=== PATIENT | male | born 1930 | race Caucasian/White ===

== ENCOUNTER 2017-02-22 15:06 | Inpatient (IN) | payer MEDICARE, BC ==
[~2017-02-22] VITALS: Ht 167.6 cm; Wt 72.1 kg
[~2017-02-22 15:06] MED LIST: MELA1TAB25 PO; MEMA28CA PO; MULT1TAB73 PO; RISP0.5T20 PO; SERT100T PO
--- NOTE | 2017-02-22 15:15 | NUR ---
BIB RA S/P GLF AT [facility]. HAS LAC ABOVE RIGHT EYE. A/OX 3, BREATHING EVEN AND UNLABORED. NO SOB. VITALS STABLE. SAFETY AND COMFORT MEASURES IN PLACE. AWAITING MD ORDERS.
--- NOTE | 2017-02-22 15:28 | NUR ---
WOUND CARE PROVIDED TO RIGHT EYE LAC. NEW IV STARTED ON LFA, 18 G. BLOOD DRAWN AND SENT TO LAB.
[2017-02-22 15:33] LABS: BASOPHILS % (AUTO) 0.1 % (0.0-2.0); EOSINOPHILS # (AUTO) 0.1 /CMM (0.0-0.7); EOSINOPHILS % (AUTO) 0.5 % (0.0-6.0); HEMATOCRIT 40 % (39-51); HEMOGLOBIN 13.2 g/dL (13.5-17.5); LYMPHOCYTES # (AUTO) 1.6 /CMM (0.8-4.8); LYMPHOCYTES % (AUTO) 14.5 % (20.0-44.0); MEAN CORPUSCULAR HEMOGLOBIN 30 PG (26.0-33.0); MEAN CORPUSCULAR HGB CONC 33 g/dl (31.0-36.0); MEAN CORPUSCULAR VOLUME 90 fL (80-96); MONOCYTES % (AUTO) 8.8 % (2.0-12.0); NEUTROPHILS # (AUTO) 8.3 /CMM (1.8-8.9); NEUTROPHILS % (AUTO) 76.1 % (43.0-81.0); PLATELET COUNT (AUTO) 273 /CMM (150-450); RED BLOOD CELL COUNT(AUTO) 4.47 MIL/uL (4.5-6.0); WHITE BLOOD COUNT (AUTO) 10.9 K/uL (4.3-11.0)
--- NOTE | 2017-02-22 15:38 | NUR ---
PATIENT TAKEN TO CT VIA STRETCHER.
[2017-02-22 15:48] LABS: CALCIUM, SERUM 8.8 mg/dL (8.5-10.1); CARBON DIOXIDE 28 mmol/L (21-32); CHLORIDE 103 mmol/L (98-107); CREATININE 1.2 mg/dL (0.6-1.3); GLUCOSE 123 mg/dL (74-106); INR 0.97 (0.87-1.13); POTASSIUM 4.2 mmol/L (3.5-5.1); PROTHROMBIN TIME 10.1 SECS (9.5-12.7); SODIUM SERUM 139 mmol/L (136-145); UREA NITROGEN, BLOOD 26 mg/dL (7-18)
[2017-02-22] MEDS ORDERED: LIDOCAINE 1%-EPI 1:100,000 50 ML VIAL IJ ONE ×2 (15:49→16:00)
[2017-02-22 15:52] LABS: ALANINE AMINOTRANSFERASE 37 U/L (12-78); ALBUMIN 3.2 g/dL (3.4-5.0); ALKALINE PHOSPHATASE 105 U/L (46-116); ASPARTATE AMINOTRANSFERASE 31 U/L (15-37); BILIRUBIN,DIRECT 0.1 mg/dL (0.0-0.2); BILIRUBIN,TOTAL 0.5 mg/dL (0.2-1.0); TOTAL PROTEIN, SERUM 8.2 g/dL (6.4-8.2)
[2017-02-22 15:57] LABS: TROPONIN I < 0.017 ng/mL (0.00-0.056)
--- NOTE | 2017-02-22 16:04 | NUR ---
CALLED NEUROSURGEON DR PATTON, LEFT VOICEMAIL. .
--- NOTE | 2017-02-22 16:13 | NUR ---
BICYCLE TAXI DRIVER, DERECK HADLEY AT BEDSIDE FOR SUTURES
[2017-02-22] MEDS ORDERED: DOCU-141 PO (16:26)
[2017-02-22] MEDS ORDERED: RISP0.2515 PO (16:26)
[2017-02-22] MEDS ORDERED: DIVA250T PO (16:26)
[2017-02-22] MEDS ORDERED: MAGN400O6 PO (16:26)
[2017-02-22] MEDS ORDERED: SENN-167 PO (16:26)
[2017-02-22] MEDS ORDERED: LORA0.5T PO (16:26)
[2017-02-22] MEDS ORDERED: POLY17PO4 PO (16:26)
[2017-02-22] MEDS ORDERED: ACETAMINOPHEN 325 MG TABLET PO PRN (17:00)
[2017-02-22] MEDS ORDERED: POLYETHYLENE GLYCOL 3350 17 GM POWD.PACK PO PRN (17:00)
[2017-02-22] MEDS ORDERED: ZOLPIDEM TARTRATE 5 MG TABLET PO PRN (17:00)
[2017-02-22] MEDS ORDERED: LORAZEPAM 0.5 MG TABLET PO PRN (17:00)
[2017-02-22] MEDS ORDERED: SENNOSIDES 8.6 MG TABLET PO PRN (17:00)
[2017-02-22] MEDS ORDERED: Z GUARD REMEDY 2 OZ OINT TP PRN (17:00)
[2017-02-22] MEDS ORDERED: MAGNESIUM HYDROXIDE 30 ML UDC PO PRN ×2 (17:00)
[2017-02-22] MEDS ORDERED: ONDANSETRON HCL/PF 4 MG/2 ML VIAL IVP PRN (17:00)
[2017-02-22] MEDS ORDERED: MAG HYDROX/AL HYDROX/SIMETH 30 ML UDC PO PRN (17:00)
--- NOTE | 2017-02-22 17:10 | NUR ---
REPORT GIVEN TO ROSA MENSAH FOR BRENDA UPON ADMISSION.
[2017-02-22 17:15] VITALS: BP 151/91
--- NOTE | 2017-02-22 17:15 | NUR ---
COLLEGE SPORTS COACH NOTES ADMITTED THIS PATIENT FROM ER, DX SUBDURAL HEMORRHAGE SECONDARY TO FALL AT ALF FACILITY. CONFUSED, ACCOMPANIED BY AND SON, ON RA, NOT IN ANY DISTRESS, SATURATING 94% ON RA, TELEMETRY READS SR HR 94, DENIES ANY CHEST PAIN OR DISCOMFORT, LFA G18 IV ACCESS, FLUSHES WELL, SITE CLEAR, LACERATION [WITH STICHES] ON RT UPPER EYE. PHOTOS OF SKIN ISSUES TAKEN. REGULAR DIET, ON DIAPERS, MADE COMFORTABLE, FALL PRECAUTIONS, SAFETY MEASURES IN PLACE, BED ALARM ON, NEEDS SITTER FOR TONIGHT, NURSING PROFESSOR OF FINANCE AWARE. CALL LIGHT WITHIN REACH. WILL CONTINUE TO MONITOR.
--- NOTE | 2017-02-22 17:20 | NUR ---
PATIENT TRANSPORTED TO 105 VIA ACLS PROTOCOL. RNROSA TO PROVIDE BRENDA.
[2017-02-22] MEDS: risperiDONE 0.25 MG TABLET PO SCH (17:47)
[2017-02-22] MEDS: DOCUSATE SODIUM 100 MG CAPSULE PO SCH (17:47)
[2017-02-22] MEDS: SERTRALINE HCL 50 MG TABLET PO SCH (17:47)
--- NOTE | 2017-02-22 18:27 | NUR ---
MECHANICAL DRAFTER NOTES PATIENT MADE COMFORTABLE, SEEN BY RENETTA DICKINSON FOR DR. PATTON. NO NEW ORDERS AT THIS TIME. ALL NEEDS MET. SAFETY MEASURES IN PLACE. BED ALARM ON. NO OTHER SIGNIFICANT CHANGE IN CONDITION. WILL ENDORSE TO NEXT SHIFT FOR BRENDA.
[2017-02-22 19:44] VITALS: BP 151/91
--- NOTE | 2017-02-22 19:49 | NUR ---
TELE TONGUE TRIMMER INITIAL NOTES RECEIVED REPORT FROM [facility] NURSE OSWALD CAMPOS SEEN IN BED LYING DOWN ON SEMI FOWLERS POSITION WITH SIDE RAILS X2 UP AND BED IN LOW AND LOCK IN POSITION. BREATHING EVEN AND NON-LABORED, IN ROOM AIR WITH O2 SAT 93%. RE-ORIENTED WHERE HE AT. SKIN WARM AND DRY TO TOUCH NOTICED LACERATION ON HIS RIGHT EYEBROW WITH STAPLE OPEN TO AIR ONLY. NO EDEMA NOTED. HE ALSO ON TELE SR HEART RATE 89 PER MONITOR. KEPT HIM WARM AND COMFORTABLE AT ALL TIMES. CONTINUE CLOSELY MONITORING FOR SAFETY.
[2017-02-22] MEDS: HYDROCODONE/APAP 5/325MG 1 EACH TABLET PO PRN (23:57)
[2017-02-23 00:04] VITALS: BP 130/80
--- NOTE | 2017-02-23 01:00 | NUR ---
TELE MS NOTES PT SLEEPING COMFORTABLY AFTER PAIN MEDS GIVEN. KEPT HIM WARM AND COMFORTABLE AT ALL TIMES. CONTINUE MONITORING.
[2017-02-23 04:44] VITALS: BP 142/78
[2017-02-23 06:52] LABS: ALANINE AMINOTRANSFERASE 34 U/L (12-78); ALBUMIN 2.9 g/dL (3.4-5.0); ALKALINE PHOSPHATASE 97 U/L (46-116); ASPARTATE AMINOTRANSFERASE 28 U/L (15-37); BILIRUBIN,TOTAL 0.7 mg/dL (0.2-1.0); CALCIUM, SERUM 8.8 mg/dL (8.5-10.1); CARBON DIOXIDE 30 mmol/L (21-32); CHLORIDE 106 mmol/L (98-107); CREATININE 1.1 mg/dL (0.6-1.3); GLUCOSE 113 mg/dL (74-106); MAGNESIUM 2.2 mg/dL (1.8-2.4); PHOSPHORUS 3.6 mg/dL (2.5-4.9); POTASSIUM 4.1 mmol/L (3.5-5.1); SODIUM SERUM 141 mmol/L (136-145); TOTAL PROTEIN, SERUM 7.9 g/dL (6.4-8.2); UREA NITROGEN, BLOOD 23 mg/dL (7-18)
[2017-02-23 06:56] LABS: BASOPHILS % (AUTO) 0.2 % (0.0-2.0); EOSINOPHILS % (AUTO) 0.3 % (0.0-6.0); HEMATOCRIT 39 % (39-51); HEMOGLOBIN 12.9 g/dL (13.5-17.5); LYMPHOCYTES # (AUTO) 1.8 /CMM (0.8-4.8); LYMPHOCYTES % (AUTO) 17.9 % (20.0-44.0); MEAN CORPUSCULAR HEMOGLOBIN 30 PG (26.0-33.0); MEAN CORPUSCULAR HGB CONC 33 g/dl (31.0-36.0); MEAN CORPUSCULAR VOLUME 90 fL (80-96); MONOCYTES # (AUTO) 1.2 /CMM (0.1-1.30); MONOCYTES % (AUTO) 11.6 % (2.0-12.0); NEUTROPHILS # (AUTO) 7.1 /CMM (1.8-8.9); PLATELET COUNT (AUTO) 262 /CMM (150-450); RDW COEFFICIENT OF VARIATION 16.4 (11.5-15.0); RED BLOOD CELL COUNT(AUTO) 4.32 MIL/uL (4.5-6.0); WHITE BLOOD COUNT (AUTO) 10.1 K/uL (4.3-11.0)
[2017-02-23 07:00] LABS: CHOLESTEROL 159 mg/dL (<200); HDL CHOLESTEROL 63 mg/dL (40-60); LDL 71 mg/dL (0-99); TRIGLYCERIDES 67 mg/dL (30-150)
--- NOTE | 2017-02-23 07:26 | NUR ---
TELE PERSONNEL TRAINING OFFICER CLOSING NOTES PT STILL LYING IN BED RESTING BUT AROUSES TO TOUCH, NO SIGNS OF ANY DISCOMFORT OR ANY ACUTE DISTRESS NOTED. TELE SR PER MONITOR. SPONGES BATH RENDERED AND REPOSITION PT Q 2HRS. SLEPT WELL AFTER NORCO TABLET GIVEN . ALL NEEDS ATTENDED. KEPT HIM WARM AND COMFORTABLE AT ALL TIMES. PLACE CALL LIGHT AT REACH. ENDORSE TO AM NURSE FOR CONTINUITY OF CARE.
--- NOTE | 2017-02-23 07:30 | NUR ---
MOTEL KEEPER AM NOTES RECEIVED PT IN BED, CONFUSED, SITTER AT BEDSIDE, ON RA, NOT IN ANY DISTRESS, SATURATING 94% ON RA, TELEMETRY READS SR HR 94, DENIES ANY CHEST PAIN OR DISCOMFORT, LFA G18 IV ACCESS, FLUSHES WELL, SITE CLEAR, LACERATION [WITH STICHES] ON RT UPPER EYE. REGULAR DIET, ON DIAPERS, MADE COMFORTABLE, FALL PRECAUTIONS, SAFETY MEASURES IN PLACE, BED ALARM ON, NEEDS SITTER FOR TONIGHT, NURSING BATCH TANK CONTROLLER AWARE. CALL LIGHT WITHIN REACH. WILL CONTINUE TO MONITOR.
[2017-02-23 08:00] VITALS: BP 135/75
[2017-02-23] MEDS: MEMANTINE HCL 5 MG TABLET PO SCH ×2 (08:17→17:27)
[2017-02-23] MEDS: DIVALPROEX SODIUM 250 MG TABLET.DR PO SCH ×3 (08:17→17:27)
[2017-02-23] MEDS: DOCUSATE SODIUM 100 MG CAPSULE PO SCH ×2 (08:17→17:27)
--- NOTE | 2017-02-23 09:30 | NUR ---
FIXTURE DESIGNER NOTES ADMINISTERED DUE MEDS.
[2017-02-23 12:00] VITALS: BP 158/88
[2017-02-23] MEDS: HYDROCODONE/APAP 5/325MG 1 EACH TABLET PO PRN (12:45)
--- NOTE | 2017-02-23 13:15 | NUR ---
MS RN NOTES PT'S WANTS TO SPEAK TO CLAUDINE MANNING. AWARE.
[2017-02-23 16:00] VITALS: BP 115/79
[2017-02-23] MEDS: SERTRALINE HCL 50 MG TABLET PO SCH (17:26)
[2017-02-23] MEDS: risperiDONE 0.25 MG TABLET PO SCH (17:27)
--- NOTE | 2017-02-23 18:16 | NUR ---
MS RN NOTES PATIENT MADE COMFORTABLE, NOT IN ANY DISTRESS. ALL NEEDS MET. SAFETY MEASURES IN PLACE. BED ALARM ON. NO OTHER SIGNIFICANT CHANGE IN CONDITION. SITTER AT BEDSIDE. WILL ENDORSE TO NEXT SHIFT FOR BRENDA.
[2017-02-23 20:00] VITALS: BP 121/70
--- NOTE | 2017-02-23 20:00 | NUR ---
MS RN NOTES RECEIVED PTS IN BED SLEEPING, EASILY AROUSE , V/S STABLE AFEBRILE , NO SOB NO DISTRESS NO COMPLAIN OF PAIN AT THIS TIME , ALL NEEDS ATTENDED TOO , SITTER AT BEDSIDE , CALL LIGHT WITHIN REACH , KEPT PTS CLEAN DRY AND COMFORTABLE.
[2017-02-23 21:52] LABS: APPEARANCE,URINE CLEAR (CLEAR); BILIRUBIN,URINE NEGATIVE (NEGATIVE); BLOOD, URINE NEGATIVE Ery/uL (NEGATIVE); COLOR,URINE ORANGE (YELLOW); KETONES,URINE TRACE (NEGATIVE); LEUKOCYTE ESTERASE ,URINE NEGATIVE (NEGATIVE); NITRITE, URINE NEGATIVE (NEGATIVE); PH,URINE 5.5 (5.0-8.0); PROTEIN,URINE TRACE mg/dl (NEGATIVE); UGLUCOSE NEGATIVE (NEGATIVE); UROBILINOGEN,URINE 0.2 EU/dL (0.2)
[2017-02-23 22:26] LABS: BACTERIA,URINE None seen /HPF (None Seen); RBC,URINE 0-2 /HPF (0-2); WBC,URINE 0-2 /HPF (0-3)
[2017-02-23 22:27] LABS: MUCUS,URINE Many /LPF (None Seen); SQUAMOUS EPITHELIAL CELL,UR Few /HPF (None Seen)
[2017-02-24 04:00] VITALS: BP 133/73
[2017-02-24 04:37] VITALS: BP 133/73
--- NOTE | 2017-02-24 06:19 | NUR ---
MS RN NOTES PTS REMAINS IN BED AWAKE AND RESPONSIVE , NO SIGNIFICANT CHANGED NOTED , WILL ENDORSE TO RN DAY SHIFT FOR CONTINUITY OF CARE.
--- NOTE | 2017-02-24 06:21 | NUR ---
MS RN NOTES PTS REMAINS ON 1:1 SITTER AT BEDSIDE.
--- NOTE | 2017-02-24 07:34 | NUR ---
MS RN NOTES RECEIVED PT ON BED SLEEPING. PT IS CONFUSED. ON ROOM AIR, TOLERATING WELL. NO SIGN OF DISTRESS. IV ACCESS ON LFA G#18 NO SIGN OF PAIN OR REDNESS. HEAD OF BED ELEVATED. SIDE RAILS UP. CALL LIGHT WITHIN REACH. WILL CONTINUE TO MONITOR PT CLOSELY.
[2017-02-24 08:00] VITALS: BP 132/90
[2017-02-24] MEDS: DIVALPROEX SODIUM 250 MG TABLET.DR PO SCH ×3 (08:47→17:32)
[2017-02-24] MEDS: DOCUSATE SODIUM 100 MG CAPSULE PO SCH ×2 (08:47→17:32)
[2017-02-24] MEDS: MEMANTINE HCL 5 MG TABLET PO SCH ×2 (08:47→17:32)
--- NOTE | 2017-02-24 11:13 | NUR ---
MS RN NOTES CALLED AND LEFT A MESSAGE FOR DR. WHEELER REGARDING CLEARANCE FOR DISCHARGE.
[2017-02-24 16:00] VITALS: BP 135/90
[2017-02-24] MEDS: SERTRALINE HCL 50 MG TABLET PO SCH (17:32)
[2017-02-24] MEDS: risperiDONE 0.25 MG TABLET PO SCH (17:32)
--- NOTE | 2017-02-24 19:30 | NUR ---
MS RN INITIAL NOTE PT SITTING UP IN BED. A/O X1 WITH NOTED CONFUSION AND RESTLESSNESS. ON ROOM AIR AND SATURATING 98%. BREATHING EVEN, REGULAR AND UNLABORED. IV LFA #18 CLEAN, DRY, PATENT AND FLUSHING WELL. NO C/O PAIN OR DISCOMFORT NOTED. BED IN LOWEST POSITION, LOCKED IN PLACE WITH BED ALARM ON. CALL LIGHT WITHIN REACH. WILL CONTINUE TO MONITOR.
[2017-02-24 20:00] VITALS: BP 113/70
[2017-02-25 04:00] VITALS: BP 104/65
--- NOTE | 2017-02-25 07:30 | NUR ---
MS RN CLOSING NOTE PT REMAINED STABLE DURING SHIFT. NO ACUTE DISTRESS NOTED. KEPT CLEAN AND DRY. ALL NEEDS ATTENDED TO PROMPTLY. ALL SAFETY MEASURES IN PLACE. BED ALARM ON. NOTED WITH EPISODES OF TRYING TO GET OUT OF BED. RECEIVED ORDERS TO APPLY BILATERAL SOFT WRIST RESTRAINTS. WILL ENDORSE TO NEXT SHIFT FOR CONTINUITY OF CARE.
--- NOTE | 2017-02-25 07:30 | NUR ---
RN MS NOTES PT IN BED, ASLEEP, EASY TO AROUSE, NO SIGN OF PAIN OR DISTRESS, KEPT COMFORTABLE AND GUN NUMBER BED.
[2017-02-25 08:00] VITALS: BP 136/80
[2017-02-25] MEDS: MEMANTINE HCL 5 MG TABLET PO SCH (10:04)
[2017-02-25] MEDS: DOCUSATE SODIUM 100 MG CAPSULE PO SCH (10:04)
[2017-02-25] MEDS: DIVALPROEX SODIUM 250 MG TABLET.DR PO SCH ×2 (10:04→12:53)
--- NOTE | 2017-02-25 13:00 | NUR ---
RN MS NOTES PT IN BED, AWAKE, WITH CONFUSION, NO SIGN OF PAIN OR DISTRESS, PT TRYING TO GET OUT OF BED UNASSISTED, BED ALARM ON, BILATERAL SOFT WRIST RESTRAINTS IN PLACE, CHECKED FOR SKIN INTEGRITY, DISCHARGE ORDER RECEIVED FROM MD, SPOKE WITH PT'S CONCHA, AWARE OF DISCHARGE PLAN, DISCHARGE AND MEDICATION INSTRUCTIONS PROVIDED TO , AWAITING TRANSPORTATION SERVICE.
--- NOTE | 2017-02-25 16:35 | NUR ---
RN MS NOTES PT IN BED, AWAKE, WITH CONFUSION, NO SIGN OF PAIN OR DISCOMFORT, RESPIRATIONS NORMAL AND NOT LABORED, PICKED UP BY 2 AMBULANCE PERSONNEL, LEFT VIA GUERNEY IN STABLE CONDITION, PT'S CONCHA INFORMED.
--- NOTE | 2017-02-25 17:02 | NUR ---
RN MS NOTES PER , PT WAS BROUGHT BY AMBULANCE AT THEIR HOME, SAUL MANUEL INFORMED, AT THIS TIME PT WAS TRANSFERED BACK TO [facility], BOARD AND CARE STAFF DALILA INFORMED BEFOREHAND OF PT'S TRANSFER BACK, PT LEFT HIS WRIST WATCH AT HIS ROOM 105, INFORMED AND SAID THAT SHE WILL PICK IT UP TOMORROW, INSTRUCTIONS GIVEN TO TO PATHOLOGY TEACHER HER 'S WATCH FROM THE CHARGE NURSE AT [facility], VERBALIZED UNDERSTANDING.
== END 2017-02-25 17:30 | disposition home health service (06) | DRG 85 ==
LOC: ER 15:08 → EDBD 15:08 → TELE1 17:01 → MEDSG1 02-23 13:30
PROVIDERS: ADMIT Internal Medicine; ATTEND Internal Medicine
DX: S06.5X0A Traumatic subdural hemorrhage without loss of consciousness, initial encounter (principal); G93.40 Encephalopathy, unspecified; F03.90 Unspecified dementia, unspecified severity, without behavioral disturbance, psychotic disturbance, mood disturbance, and anxiety; W19.XXXA Unspecified fall, initial encounter; Y93.9 Activity, unspecified; Y92.129 Unspecified place in nursing home as the place of occurrence of the external cause; Z79.899 Other long term (current) drug therapy; S01.111A Laceration without foreign body of right eyelid and periocular area, initial encounter; W18.30XA Fall on same level, unspecified, initial encounter; S06.6X0A Traumatic subarachnoid hemorrhage without loss of consciousness, initial encounter
CPT/HCPCS: 36415; 70450-TC; 71010-TC; 80048-TC; 80053-TC; 80061-TC; 80076-TC; 81000-TC; 83735-TC; 84100-TC; 84484-TC; 85025-TC; 85730-TC; 87081-TC; A4606; A6402; J3490; Z7610